=== PATIENT | male | born 1970 | race American Indian/Alaskan Native ===

== ENCOUNTER 2017-08-18 00:28 | Emergency (ER) | payer SELFPAY ==
[2017-08-18 01:36] VITALS: BP 148/94
[2017-08-18] MEDS ORDERED: BENADRYL PO ONE (05:20)
--- NOTE | 2017-08-18 05:25 | Emergency Department Report ---
ED Rash HPI - HPI Chief Complaint: Skin Rash Stated Complaint: RASH Time Seen by Provider: 08/18/17 05:20 Location: Chest, Abdomen, Upper Extremities Rash Symptoms: Yes Itching, No Facial Swelling, No Tongue/Oral Swelling, No Breathing Difficulties, No Choking Sensation, No Wheezing/Dyspnea, No Peeling, No Blistering, No Fever, No Lightheaded, No Malaise, No Myalgias Severity: moderate Other History: 47-year-old Afro-[place]ian male comes in to the ED for complaint of rash all over since . Patient denies any swelling no shortness of breathing or difficulty swallowing no chest pain no eye swelling reports that the rashes itches. He reports that he may have changed soap powder. 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 Patient has taken no medication for rash. He does report he started taking amlodipine versus Norvasc for his blood pressure. ED Review of Systems ROS: Stated complaint: RASH Other details as noted in HPI Constitutional: denies: chills, fever Eyes: denies: eye pain, eye discharge, vision change ENT: denies: ear pain, throat pain Respiratory: denies: cough, shortness of breath, wheezing Cardiovascular: denies: chest pain, palpitations Endocrine: no symptoms reported Gastrointestinal: denies: abdominal pain, nausea, diarrhea Genitourinary: denies: urgency, dysuria Musculoskeletal: denies: back pain, joint swelling, arthralgia Skin: rash Neurological: denies: headache, weakness, paresthesias Psychiatric: denies: anxiety, depression Hematological/Lymphatic: denies: easy bleeding, easy bruising ED Past Medical Hx - Past Medical History Previous Medical History?: No - Surgical History Past Surgical History?: No - Social History Smoking Status: Current Every Day Smoker - Medications Home Medications: Home Medications Medication Instructions Recorded Confirmed Last Taken Type Cyclobenzaprine [Flexeril 10mg] 10 mg PO TID PRN #20 tablet 11/07/13 Unknown Rx HYDROcodone/APAP 7.5-325 [[place] 1 each PO Q6HR PRN #20 tablet 11/07/13 Unknown Rx 7.5/325 mg] Ibuprofen [Motrin] 600 mg PO Q8H PRN #50 tablet 11/07/13 Unknown Rx Rash Exam - Exam General: Vital signs noted. No distress. Alert and acting appropriately. HEENT: No Periorbital Edema, No Conjuctival Injection, No Chemosis, No Perioral Edema, No Tongue Edema, No Uvular Edema, No Compromised Airway, No Drooling Lungs: Yes Good Air Exchange Heart: Yes Regular Skin: Yes Maculopapular Rash, No Urticarial Rash, No Morbilliform rash, No Bulla (e), No Excoriations, No Weeping, No Tenderness, No Erythema, No Edema, No Encrustations, No Other Other: Positive: Abdomen Normal, Neurologic Normal, Musculoskeletal Normal ED Course Vital Signs 08/18/17 01:33 Temperature 97.6 F Pulse Rate 99 H Respiratory 17 Rate Blood Pressure 148/94 O2 Sat by Pulse 99 Oximetry ED Medical Decision Making - Medical Decision Making Patient's been evaluated with his provider fast track. Discussed the patient was given Benadryl. Discussed the patient he needs to avoid the soap R that he has started using. Discussed patient that this rash can be from many things. He needs to do a process of elimination. His symptoms persist or gets worse he needs to follow-up with a primary care provider. Critical care attestation.: If time is entered above; I have spent that time in minutes in the direct care of this critically ill patient, excluding procedure time. ED Disposition Clinical Impression: Pruritic rash Disposition: - LEFT AGAINST MED ADVICE Is pt being admited?: No Does the pt Need Aspirin: No Condition: Stable Instructions: Acute Rash (ED) Additional Instructions: You can try taking [id number] Benadryl to help with the rash. Try to eliminate any new changes in your daily routine as this can be a cause of allergic reaction. If symptoms persist or gets worse please follow up with her primary care provider I have listed one below. Referrals: PRIMARY CARE [Primary Care Provider] - 3-5 Days [facility] [Provider Group] - 3-5 Days Forms: Work/School Release Form(ED)
== END 2017-08-18 06:12 | disposition left against medical advice (07) ==
LOC: ED 00:28
DX: L29.9 Pruritus, unspecified (principal); F17.200 Nicotine dependence, unspecified, uncomplicated; Z91.013 Allergy to seafood
CPT/HCPCS: 99282

== ENCOUNTER 2018-01-08 20:04 | Emergency (ER) | payer OTHER ==
[2018-01-08] MEDS ORDERED: TYLENOL ONE (20:35)
[2018-01-08] MEDS ORDERED: TYLENOL PO ONE (20:38)
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
[2018-01-08] MEDS ORDERED: MOTRIN PO ONE (22:58)
[2018-01-08] MEDS ORDERED: FLEXERIL PO ONE (22:58)
[2018-01-08] MEDS ORDERED: NORCO 5/325 PO ONE (22:58)
[2018-01-08] MEDS ORDERED: TRIPLE ANTIBIOTIC TP ONE (23:19)
[2018-01-09 00:02] VITALS: BP 129/88
== END 2018-01-09 | disposition home or self-care (01) ==
LOC: ED 20:04
DX: S39.012A Strain of muscle, fascia and tendon of lower back, initial encounter (principal); M54.9 Dorsalgia, unspecified; M79.641 Pain in right hand; M79.642 Pain in left hand; I10 Essential (primary) hypertension; F17.200 Nicotine dependence, unspecified, uncomplicated; F12.90 Cannabis use, unspecified, uncomplicated; Z91.013 Allergy to seafood; V89.2XXA Person injured in unspecified motor-vehicle accident, traffic, initial encounter; Y93.89 Activity, other specified; Y92.410 Unspecified street and highway as the place of occurrence of the external cause; Y99.8 Other external cause status
CPT/HCPCS: 72100; 99283; A6250

== ENCOUNTER 2018-12-03 15:06 | Emergency (ER) | payer SELFPAY ==
--- NOTE | 2018-12-03 15:24 | Event Note ---
ED Screening Note ED Screening Note: pt presents with dizziness that began this morning had before hx of HTN, not currently taking meds no vision changes, no numbness or weakness no allergies to meds This initial assessment/diagnostic orders/clinical plan/treatment(s) is/are subject to change based on patients health status, clinical progression and re- assessment by fellow clinical providers in the ED. Further treatment and workup at subsequent clinical providers discretion. Patient/guardian urged not to elope from the ED as their condition may be serious if not clinically assessed and managed. Initial orders include: labs, EKG, CT head
[2018-12-03 15:25] VITALS: BP 125/81
[2018-12-03 15:46] LABS: Basophils # (Auto) 0.1 K/mm3 (0.0-0.1); Eosinophils # (Auto) 0.1 K/mm3 (0.0-0.4); Eosinophils % (Auto) 1.3 % (0.0-4.3); Hematocrit 41.8 % (35.5-45.6); Hemoglobin 14.2 gm/dl (11.8-15.2); Lymphocytes # (Auto) 2.8 K/mm3 (1.2-5.4); Lymphocytes % (Auto) 29.1 % (13.4-35.0); Mean Corpuscular HGB Conc 34 % (32-34); Mean Corpuscular Volume 90 fl (84-94); Monocytes # (Auto) 0.4 K/mm3 (0.0-0.8); Monocytes % (Auto) 4.3 % (0.0-7.3); Platelet Count 338 K/mm3 (140-440); Red Blood Count 4.64 M/mm3 (3.65-5.03); Red Cell Distribution Width 13.6 % (13.2-15.2)
[2018-12-03 16:05] LABS: BUN/Creatinine Ratio 12; Blood Urea Nitrogen 15 mg/dL (9-20); Hemolysis Index 8
--- NOTE | 2018-12-03 17:16 | Emergency Department Report ---
Blank Doc - Documentation Documentation: After I picked up patients chart, I went to see the patient but patient was not in the room. I called the number listed but had no response or answer. Patient was seen by me or examined by me.
== END 2018-12-03 17:08 | disposition left against medical advice (07) ==
LOC: ED 15:06
DX: R42 Dizziness and giddiness (principal); Z53.21 Procedure and treatment not carried out due to patient leaving prior to being seen by health care provider
CPT/HCPCS: 36415; 80048; 85025; 99283